=== PATIENT | female | born 2000 | race African-American/Black ===

== ENCOUNTER 2021-07-05 08:44 | Emergency (ER) | payer BC ==
[~2021-07-05] VITALS: Ht 167.6 cm; Wt 99.8 kg
[2021-07-05 08:48] VITALS: BP 139/69
[2021-07-05] MEDS ORDERED: CORTISPORIN OTI10 M2 OTIC (09:29)
[2021-07-05] MEDS ORDERED: NORCO7.5 PO (09:29)
== END 2021-07-05 09:41 | disposition home or self-care (01) ==
LOC: ER 08:44
DX: H60.91 Unspecified otitis externa, right ear (principal)